=== PATIENT | male | born 1960 | race Caucasian/White ===

== ENCOUNTER → 2016-07-28 | Outpatient (REF) | payer OTHER | LOC: M SFHCLERA 11:13 | PROVIDERS: ATTEND Family Medicine | DX: B35.1 Tinea unguium (principal) ==

== ENCOUNTER → 2016-09-16 | Outpatient (REF) | payer OTHER ==
[2016-09-16 18:00] LABS: ALBUMIN 3.6 GM/DL (3.2-5.2); ALBUMIN/GLOBULIN RATIO 1.13 (1.00-1.93); ALKALINE PHOSPHATASE 67 U/L (45-117); ALT/SGPT 27 U/L (12-78); ANION GAP 7 MEQ/L (8-16); AST/SGOT 17 U/L (15-37); BILIRUBIN,TOTAL 0.4 MG/DL (0.2-1.0); BLOOD UREA NITROGEN 16 MG/DL (7-18); CALCIUM LEVEL 8.2 MG/DL (8.5-10.1); CARBON DIOXIDE LEVEL 28 MEQ/L (21-32); CHLORIDE LEVEL 105 MEQ/L (98-107); CHOLESTEROL LEVEL 202 MG/DL (<200); CREATININE FOR GFR 1.01 MG/DL (0.70-1.30); GLOMERULAR FILTRATION RATE > 60.0 (>56); GLUCOSE, FASTING 94 MG/DL (70-105); POTASSIUM SERUM 4.3 MEQ/L (3.5-5.1); SODIUM LEVEL 140 MEQ/L (136-145); TOTAL PROTEIN 6.8 GM/DL (6.4-8.2); TRIGLYCERIDES LEVEL 93 MG/DL (<150)
[2016-09-16 18:21] LABS: MEAN CORPUSCULAR HGB CONC 33.1 g/dl (32.0-36.5); MEAN CORPUSCULAR VOLUME 93.6 fl (80.0-96.0); RED CELL DISTRIBUTION WIDTH 12.5 % (11.5-14.5); WHITE BLOOD COUNT 5.4 K/mm3 (4.0-10.0)
== END ==
LOC: M SFHCLERA 10:34
PROVIDERS: ATTEND Family Medicine
DX: Z13.1 Encounter for screening for diabetes mellitus (principal); Z13.220 Encounter for screening for lipoid disorders; R03.0 Elevated blood-pressure reading, without diagnosis of hypertension

== ENCOUNTER → 2016-09-17 | Outpatient (CLI) | payer OTHER, SELFPAY ==
--- NOTE | 2016-09-18 04:43 | REP ---
Clinical: Inguinal pain. Rule out hernia. Technique: Real time lu scale ultrasound examination using linear high frequency transducer. Findings: Ultrasound examination of the bilateral inguinal canals for inguinal and femoral hernias demonstrates a small fat containing reducible left inguinal hernia measuring roughly 20 mm maximal diameter on Valsalva. Further evaluation in the region of tenderness demonstrates a 39 x 15 x 19 mm solitary lymph node. Impression: Small reducible fat containing left inguinal hernia. Solitary left inguinal lymph node. Signed by Rudy Ford MD 09/18/2016 04:35 A
== END ==
LOC: M RAD 14:21
PROVIDERS: ATTEND Family Medicine
DX: K41.90 Unilateral femoral hernia, without obstruction or gangrene, not specified as recurrent (principal); R59.9 Enlarged lymph nodes, unspecified

== ENCOUNTER → 2017-01-28 | Outpatient (CLI) | payer OTHER ==
[~2017-01-28] MED LIST: ASPI1TAB PO; ATOR40TA75 PO; INDO50CA PO; OMEG100011 PO
--- NOTE | 2017-01-28 17:08 | REP ---
LEFT LOWER EXTREMITY DOPPLER VENOUS ULTRASOUND AND VENOUS REFLUX STUDY: 01/28/2017. CLINICAL HISTORY: Venous valvular insufficiency. FINDINGS:DEEP VENOUS STUDY: The deep venous system from the groin to the popliteal fossa including the common femoral through popliteal veins show full compressibility, respiratory variation and augmented flow, color flow throughout the course and no evidence of thrombus. In the left groin is a 3 x 2.9 x 1 cm lymph node. I do not see other significant deep venous findings. IMPRESSION: No ultrasound evidence of DVT in the left lower extremity. VENOUS REFLUX STUDY, LEFT LOWER EXTREMITY: Common femoral vein: yes reflux. Anterior accessory GSV: no reflux. GSV at saphenofemoral junction: Yes reflux, AP dimension 7 mm, reflux for 7.6 seconds. GSV at mid thigh: Yes, reflux, AP dimension 5 mm, reflux for 8.2 seconds. GSV at knee: No reflux, AP dimension 3 mm. SSV proximal, yes reflux.SFA mid: No reflux.SFA distal: No reflux.Popliteal: Yes reflux.LSV: 2 mm, no reflux. There are collateral veins off the mid GSV with reflux connecting to superficial varicosities at the knee level. Mild reflux deep system. The GSV shows reflux in its proximal mid and collateral branches. Signed by Brady Mars MD 01/29/2017 01:50 P
== END ==
LOC: M RAD 13:58
PROVIDERS: ATTEND Surgery Vascular Surgery
DX: I87.2 Venous insufficiency (chronic) (peripheral) (principal)

== ENCOUNTER 2017-02-27 09:29 | Outpatient (CLI) | payer OTHER ==
[~2017-02-27] VITALS: Ht 182.9 cm; Wt 98.4 kg
[2017-02-27] MEDS ORDERED: NS 1,000 ML IV ONE (09:45)
[2017-02-27] MEDS ORDERED: PROPOFOL 200 MG/20 ML VIAL As Ordered ONE (11:55)
--- NOTE | 2017-02-27 12:12 | ROOR ---
Patient Name: Landen John Procedure Date: 02/27/2017 11:50 AM Date of : 1960 Age: 56 Room: [facility] Gender: Male Note Status: Finalized Procedure: Colonoscopy Indications: Screening for colorectal malignant neoplasm Providers: Rashawn FORMAN MD Referring MD: LATOYA ST MD Requesting Provider: Medicines: Monitored Anesthesia Care Complications: No immediate complications. Procedure: Pre-Anesthesia Assessment: - The heart rate, respiratory rate, oxygen saturations, blood pressure, adequacy of pulmonary ventilation, and response to care were monitored throughout the procedure. The Colonoscope was introduced through the anus and advanced to the cecum, identified by appendiceal orifice and ileocecal valve. The colonoscopy was performed without difficulty. The patient tolerated the procedure well. The quality of the bowel preparation was good. Findings: The perianal and digital rectal examinations were normal. A 4 mm polyp was found in the sigmoid colon. The polyp was sessile. The polyp was removed with a cold snare. Resection and retrieval were complete. The exam was otherwise without abnormality on direct and retroflexion views. Impression: - One 4 mm polyp in the sigmoid colon, removed with a cold snare. Resected and retrieved. - The colon examination was otherwise normal on direct and retroflexion views. Recommendation: - Telephone endoscopist for pathology results in 2 weeks. - If the pathology report reveals adenomatous tissue, then repeat the colonoscopy for surveillance in 5 years. - If the pathology report indicates hyperplastic polyp, then repeat colonoscopy for screening purposes in 10 years. Rashawn Forman MD Rashawn FORMAN MD 02/27/2017 12:11:56 PM This report has been signed electronically. Number of Addenda: 0 Note Initiated On: 02/27/2017 11:50 AM Estimated Blood Loss: Estimated blood loss: none.
[2017-02-27 12:35] VITALS: BP 125/89
== END 2017-02-27 12:46 | disposition home or self-care (01) ==
LOC: M OPP 09:29
PROVIDERS: ATTEND Internal Medicine Gastroenterology
DX: Z12.11 Encounter for screening for malignant neoplasm of colon (principal); D12.5 Benign neoplasm of sigmoid colon; R07.89 Other chest pain; E78.5 Hyperlipidemia, unspecified; M10.9 Gout, unspecified; R10.9 Unspecified abdominal pain; R60.0 Localized edema; R51 Headache; G47.8 Other sleep disorders; Z79.82 Long term (current) use of aspirin; Z79.899 Other long term (current) drug therapy

== ENCOUNTER → 2018-10-11 | Outpatient (REF) | payer OTHER ==
[~2018-10-11] MED LIST changes: -ASPI1TAB PO; +ASPI81TA26 PO; -INDO50CA PO; +INDO50CA11 PO
[2018-10-11 17:27] LABS: ALBUMIN 3.7 GM/DL (3.2-5.2); BILIRUBIN,DIRECT 0.2 MG/DL (0.0-0.2); BILIRUBIN,TOTAL 0.6 MG/DL (0.2-1.0); TOTAL PROTEIN 7.1 GM/DL (6.4-8.2)
== END ==
LOC: M SFHCLERA 16:28
PROVIDERS: ATTEND Family Medicine
DX: B35.4 Tinea corporis (principal)

== ENCOUNTER → 2020-06-21 | Outpatient (CLI) | payer OTHER ==
[~2020-06-21] MED LIST changes: +ECOT81TA5 PO; -INDO50CA11 PO; +INDO50CA91 PO; +LIDOCAINE 1% MDV 20ML VIAL As Ordered ONE; +LIDOCAINE 2% MDV 20ML VIAL As Ordered ONE; +MIDAZOLAM INJ 2MG/2ML VIAL (J2250 PER 1MG) As Ordered ONE; +PROMETHAZINE INJ 25 MG/ML VIAL (J2550) As Ordered ONE; +diphenhydrAMINE 50MG/ML VIAL (J1200) As Ordered ONE; +fentaNYL 100 MCG/2 ML INJECTION (J3010) As Ordered ONE
--- NOTE | 2020-06-21 10:50 | IRHP ---
[facility] IR Pre-Procedure H & P General Date of Service: Jun 21, 2020 Procedure: Same Day Surgery Interval History and Physical I have seen the patient and reviewed last H & P performed within 30 days. There is no significant interval change. History of Present Illness Chief Complaint The patient is a 59-year-old male admitted with a reason for visit of Varicose Veins. PRE-PROCEDURE DIAGNOSIS: Varicose veins HEART: normal rate LUNGS: Normal breathing at rest. ASA Classification ASA Classification: II-Mild systemic disease, III-Severe systemic dis. Mallampati Score: II NPO: Yes Problems with prior sedation: No Obstructive Sleep Apnea: No Plan moderate sedation Allergies Coded Allergies: No Known Allergies (Unverified , 02/25/17) Home Medications Scheduled Aspirin (Aspirin EC), 81 MG PO DAILYPRN, (Reported) Aspirin (Aspirin EC), 81 MG PO DAILY, (Reported) Aspirin (Ecotrin), 81 MG PO DAILY Atorvastatin Calcium (Atorvastatin Calcium), 40 MG PO DAILY, (Reported) Indomethacin (Indomethacin), 50 MG PO TIDP, (Reported) Pomfret-3 Fatty Acids/Fish Oil (Pomfret 3 1,000 mg Softgel), 3 CAP PO DAILY, (Reported) VS, I&O, 24H, Fishbone Vital Signs/I&O Vital Signs Date Time Temp Pulse Resp B/P (MAP) Pulse Ox O2 Delivery O2 Flow Rate FiO2 06/21/20 10:30 97.5 67 18 97 Room Air Laboratory Data CBC/BMP JONNIE CRYSTAL MD Jun 21, 2020 10:50
[2020-06-21 11:02] LABS: HEMATOCRIT 47.6 % (42.0-52.0); HEMOGLOBIN 15.5 g/dl (13.5-17.5); MEAN CORPUSCULAR HEMOGLOBIN 30.3 pg (27.0-33.0); MEAN CORPUSCULAR HGB CONC 32.6 g/dl (32.0-36.5); MEAN CORPUSCULAR VOLUME 93.2 fl (80.0-96.0); PLATELET COUNT, AUTOMATED 237 10^3/uL (150-450); RED BLOOD COUNT 5.11 10^6/uL (4.30-6.10); WHITE BLOOD COUNT 6.7 10^3/uL (4.0-10.0)
[2020-06-21 13:30] VITALS: BP 128/79
--- NOTE | 2020-06-27 11:58 | POST-OPPD ---
Postoperative Procedure Note Date Of Procedure: Jun 21, 2020 Time Of Procedure: 16:00 IR Endovenous laser treatment for left leg varicose vein. IR Ultrasound of the left leg. IR Tumescent anesthesia under ultrasound guidance. IR Moderate sedation. Clinical information: Chronic left leg pain, swelling and varicose veins. 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 Physician: Dr. Field. Procedure: The patient was advised of the benefits, risks and alternatives of the procedure and informed consent was obtained. The time-out was performed with verification of the patient's name, MRN, site of procedure and type of procedure to be performed. The patient was positioned in the supine position on the table. The site was prepped and draped in the usual sterile fashion. Moderate sedation was performed by the physician including the presence of an independent trained RN who assisted in monitoring the patient's level of consciousness and physiologic status. Following the administration of fentanyl and Versed , the physician spent 60 minutes of continuous face to face time with the patient. Ultrasound of the left lower extremity demonstrates dilated left greater saphenous vein with greater than 0.5 seconds reflux. The access site was identified with ultrasound and anesthetized with lidocaine. The left GSV was accessed under ultrasound guidance at the proximal calf, using a micro introducer needle. An 018 cope wire was advanced into the vein. Incision at the access site was made using a scalpel. The needle was removed and an access catheter was advanced over the wire under ultrasound guidance to > 2.5 centimeters from the saphenofemoral junction. The wire was removed and the laser fiber was advanced through the catheter under ultrasound guidance and positioned with the tip located 2.5 cm from the saphenous femoral junction. Tumescent anesthesia was then injected under ultrasound guidance along the entire length of the vein to be treated. Repeat ultrasound of the saphenofemoral junction was used to confirm positioning of the tip of the laser back 2.5 cm from junction. The patient was positioned in Trendelenburg. The laser was then activated and under ultrasound guidance used to laser the left GSV back to the access point. Simultaneous manual compression was applied to the treated vein. Treatment: Wattage: 7. Time: 145 seconds. Pullback rate 1 cm every 7 seconds. Total Energy deposited 1013 joules. Treatment approximately 50 joules per centimeter of vein. The fiber, catheter and sheath were removed, pressure held and hemostasis achieved. A sterile dressing was applied to the site. Compression dressing was then applied to the leg, from ankle to groin. The patient tolerated the procedure well and was returned to the PRU in stable condition. EBL: < 5 ml. Complications: None. Impression: 1. Ultrasound demonstrates dilated left greater saphenous vein with greater than 0.5 seconds reflux. 2. Successful left GSV ablation with laser. 3. Compression dressing applied from ankle to groin. Patient to return in 1 week for follow up ultrasound at which time the compression dressing will be switched to stockings. Thank you this referral. Cc JONNIE Mendez MD Jun 27, 2020 11:58
== END ==
LOC: M IRPRO 10:20
PROVIDERS: ATTEND Radiology Diagnostic Radiology
DX: I83.812 Varicose veins of left lower extremity with pain (principal); I87.302 Chronic venous hypertension (idiopathic) without complications of left lower extremity; Z79.899 Other long term (current) drug therapy; Z79.82 Long term (current) use of aspirin
CPT/HCPCS: 36478; 76940; 85027; 99152; 99153; J1200; J2250; J3010

== ENCOUNTER → 2020-06-28 | Outpatient (CLI) | payer OTHER ==
[~2020-06-28] MED LIST changes: -LIDOCAINE 1% MDV 20ML VIAL As Ordered ONE; -LIDOCAINE 2% MDV 20ML VIAL As Ordered ONE; -MIDAZOLAM INJ 2MG/2ML VIAL (J2250 PER 1MG) As Ordered ONE; -PROMETHAZINE INJ 25 MG/ML VIAL (J2550) As Ordered ONE; -diphenhydrAMINE 50MG/ML VIAL (J1200) As Ordered ONE; -fentaNYL 100 MCG/2 ML INJECTION (J3010) As Ordered ONE
--- NOTE | 2020-06-28 19:12 | REP ---
INDICATION: VARICOSE VEINS COMPARISON: None. TECHNIQUE: Beltre scale and color Doppler evaluation left lower extremity using linear high frequency transducer. FINDINGS: Ultrasound examination of the left lower extremity deep venous structures from the common femoral vein to the popliteal vein demonstrates normal compressibility flow and wave patterns in response to respiration and augmentation. There is no evidence for deep venous thrombosis. Patient is noted to be status post ablation therapy with thrombus in the greater saphenous vein originating 1.7 cm from the origin with common femoral vein. IMPRESSION: No evidence for deep venous thrombosis. <Electronically signed by Rudy Ford > 06/28/20 [id number]
== END ==
LOC: M RAD 10:43
PROVIDERS: ATTEND Radiology Diagnostic Radiology
DX: I83.90 Asymptomatic varicose veins of unspecified lower extremity (principal); Z98.890 Other specified postprocedural states; Z86.718 Personal history of other venous thrombosis and embolism

== ENCOUNTER → 2020-07-24 | Outpatient (POV) | payer OTHER ==
--- NOTE | 2020-07-26 10:23 | IRPN ---
[facility] IR Progress Note IR Progress Note DATE: Jul 24, 2020 Patient agreed to this telephone follow-up. [place] interpretation services were utilized. I spent 10 minutes talking to the patient. FOLLOW-UP: Status post left lower extremity EVLT therapy for swelling and pain. Patient states he is now able to walk to the car at the end of his shift without having to stop or sit down. His left leg aching is no longer there. He states the access site is healing well. No pain, discharge or swelling. Imaging: I personally reviewed the post EVLT follow-up ultrasound. Treated saphenous vein is appropriately thrombosed. No deep vein thrombosis. IMPRESSION: Doing well status post left lower extremity EVLT. Patient's symptoms have resolved. Patient is encouraged to wear thigh-high compression during the day. No further follow-up scheduled unless initiated by the patient and or re ferring provider. Thank you for this referral. Cc Dr. Benito Mcleod Allergies Coded Allergies: No Known Allergies (Unverified , 02/25/17) JONNIE CRYSTAL MD Jul 26, 2020 10:23
== END ==
LOC: M TMIRPOV 07:53
PROVIDERS: ATTEND Radiology Diagnostic Radiology
DX: Z48.812 Encounter for surgical aftercare following surgery on the circulatory system (principal)

== ENCOUNTER → 2020-08-11 | Outpatient (CLI) | payer OTHER ==
--- NOTE | 2020-08-11 12:26 | REP ---
INDICATION: PAIN IN RIGHT FOOT COMPARISON: None. TECHNIQUE: AP, lateral, bilateral oblique views right foot. FINDINGS: The osseous structures and joint spaces are intact and normal. There is no evidence for acute fracture or dislocation. Surrounding soft tissues are unremarkable. No subcutaneous emphysema or radiodense foreign body. IMPRESSION: Unremarkable age-appropriate right foot radiographs. No acute fracture or dislocation. <Electronically signed by Rudy Ford > 08/11/20 [id number]
== END ==
LOC: M RAD 11:55
PROVIDERS: ATTEND Family Medicine
DX: M79.671 Pain in right foot (principal)

== ENCOUNTER → 2020-08-25 | Outpatient (CLI) | payer OTHER ==
[2020-08-25 13:02] LABS: BASO # 0.1 10^3/uL (0.0-0.2); BASO % 0.8 % (0.0-1.0); EOS # 0.1 10^3/uL (0.0-0.5); EOS % 1.7 % (0.0-3.0); HEMATOCRIT 50.4 % (42.0-52.0); HEMOGLOBIN 16.6 g/dl (13.5-17.5); LYMPH # 1.7 10^3/uL (1.5-5.0); LYMPH % 25.5 % (24.0-44.0); MEAN CORPUSCULAR HEMOGLOBIN 31.1 pg (27.0-33.0); MEAN CORPUSCULAR HGB CONC 32.9 g/dl (32.0-36.5); MEAN CORPUSCULAR VOLUME 94.4 fl (80.0-96.0); MONO # 0.8 10^3/uL (0.0-0.8); MONO % 11.8 % (2.0-8.0); NEUTROPHILS # 3.9 10^3/uL (1.5-8.5); NEUTROPHILS % 59.9 % (36.0-66.0); PLATELET COUNT, AUTOMATED 266 10^3/uL (150-450); RED BLOOD COUNT 5.34 10^6/uL (4.30-6.10); WHITE BLOOD COUNT 6.5 10^3/uL (4.0-10.0)
[2020-08-25 13:38] LABS: ALBUMIN 3.8 GM/DL (3.2-5.2); ALT/SGPT 40 U/L (12-78); BILIRUBIN,TOTAL 0.6 MG/DL (0.2-1.0); BLOOD UREA NITROGEN 15 MG/DL (7-18); CALCIUM LEVEL 9.1 MG/DL (8.5-10.1); CARBON DIOXIDE LEVEL 32 MEQ/L (21-32); CHLORIDE LEVEL 106 MEQ/L (98-107); CREATININE FOR GFR 0.94 MG/DL (0.70-1.30); GLOMERULAR FILTRATION RATE > 60.0 (>56); GLUCOSE, FASTING 90 MG/DL (70-100); LIPASE 156 U/L (73-393); SODIUM LEVEL 141 MEQ/L (136-145); TOTAL PROTEIN 7.4 GM/DL (6.4-8.2)
== END ==
LOC: M LAB 12:23
PROVIDERS: ATTEND Family Medicine
DX: R10.11 Right upper quadrant pain (principal)

== ENCOUNTER → 2020-09-05 | Outpatient (CLI) | payer OTHER ==
--- NOTE | 2020-09-05 08:32 | REP ---
INDICATION: RUQ PAIN COMPARISON: None. TECHNIQUE: Real time lu scale ultrasound examination using curved array transducer. FINDINGS: Liver demonstrates relatively normal parenchymal echotexture with scattered areas of increased echogenicity suggesting a mottled fatty infiltration. No discrete focal hepatic mass lesion is identified. The pancreas is incompletely evaluated due to interposed bowel gas but visualized portions appear normal. The gallbladder is normal and without gallstones, wall thickening, or pericholecystic fluid. Incidental 4 mm polyp noted. No biliary ductal dilatation is appreciated and the common bile duct measures 5.0 mm diameter. Right kidney is normal in reniform shape without hydronephrosis and measures 11.0 x 4.5 x 4.6 cm. No ascites in the visualized right upper quadrant. IMPRESSION: 1. Findings suggesting mottled fatty infiltration to the liver. 2. 4 mm benign appearing gallbladder polyp. <Electronically signed by Rudy Ford > 09/05/20 [id number]
== END ==
LOC: M RAD 07:41
PROVIDERS: ATTEND Family Medicine
DX: R10.11 Right upper quadrant pain (principal)

== ENCOUNTER → 2020-12-07 | Outpatient (CLI) | payer OTHER ==
--- NOTE | 2020-12-07 15:29 | REP ---
INDICATION: PAIN. COMPARISON: None. TECHNIQUE: Four views each elbow FINDINGS: There is no acute fracture, destructive osseous lesion, subluxation, or joint effusion on either side. IMPRESSION: Within normal limits bilateral <Electronically signed by Jakub Garcia > 12/07/20 [id number]
== END ==
LOC: M SOG 14:34
PROVIDERS: ATTEND Orthopaedic Surgery Sports Medicine
DX: M25.522 Pain in left elbow (principal); M25.521 Pain in right elbow

== ENCOUNTER → 2022-06-11 | Outpatient (REF) | payer OTHER ==
[2022-06-11 12:10] LABS: APPEARANCE, URINE MANUAL CLEAR (CLEAR); BILIRUBIN, URINE MANUAL NEGATIVE (NEGATIVE); BLOOD URINE MANUAL NEGATIVE (NEGATIVE); COLOR, URINE MANUAL YELLOW (YELLOW); GLUCOSE, URINE (UA) MANUAL NEGATIVE (NEGATIVE); KETONE, URINE MANUAL NEGATIVE (NEGATIVE); LEUKOCYTE ESTERASE, URINE MAN NEGATIVE (NEGATIVE); NITRITE, URINE MANUAL NEGATIVE (NEGATIVE); PROTEIN, URINE MANUAL NEGATIVE (NEGATIVE); SPECIFIC GRAVITY,URINE MANUAL 1.025 (1.002-1.035); UROBILINOGEN, URINE MANUAL NORMAL (NORMAL)
== END ==
LOC: M SFHCLERA 11:28
PROVIDERS: ATTEND Family Medicine
DX: R30.0 Dysuria (principal)

== ENCOUNTER → 2022-07-24 | Outpatient (CLI) | payer OTHER | LOC: M LABSMTC 09:55 | PROVIDERS: ATTEND Anesthesiology | DX: Z01.812 Encounter for preprocedural laboratory examination (principal); Z11.52 Encounter for screening for COVID-19 ==

== ENCOUNTER → 2022-07-28 | Outpatient (CLI) | payer OTHER | LOC: M WUC 12:37 | PROVIDERS: ATTEND Family Medicine | DX: R07.9 Chest pain, unspecified (principal) ==

== ENCOUNTER → 2022-07-28 | Outpatient (CLI) | payer OTHER | LOC: M WUC 13:22 | PROVIDERS: ATTEND Family Medicine | DX: R07.89 Other chest pain (principal) ==

== ENCOUNTER 2022-07-29 06:34 | Day surgery (SDC) | payer OTHER ==
[~2022-07-29] VITALS: Ht 180.3 cm; Wt 94.7 kg
[~2022-07-29 06:34] MED LIST changes: +NS 1,000 ML IV ONE
[2022-07-29] MEDS ORDERED: LIDOCAINE 2% 100MG/5ML SDV (FOR ANES.) As Ordered ONE (07:07)
[2022-07-29] MEDS ORDERED: propofoL 200 MG/20 ML VIAL As Ordered ONE (07:07)
[2022-07-29] MEDS ORDERED: GLYCOPYRROLATE INJ 0.2 MG/ML 2 ML VIAL As Ordered ONE (07:12)
[2022-07-29 08:12] VITALS: BP 116/67
== END 2022-07-29 08:23 | disposition home or self-care (01) ==
LOC: M OPP 06:34
PROVIDERS: ATTEND Internal Medicine Gastroenterology
DX: Z12.11 Encounter for screening for malignant neoplasm of colon (principal); Z86.010 Personal history of colon polyps; D12.4 Benign neoplasm of descending colon; K64.8 Other hemorrhoids; M10.9 Gout, unspecified; K21.9 Gastro-esophageal reflux disease without esophagitis; E78.00 Pure hypercholesterolemia, unspecified; Z79.82 Long term (current) use of aspirin